=== PATIENT | male | born 1945 | race Caucasian/White ===

== ENCOUNTER 2024-02-11 07:44 | Inpatient (IN) | payer OTHER, SELFPAY ==
[2024-02-06 08:52] VITALS: BMI 24.7
[2024-02-11] VITALS (14 sets, daily range): BP systolic 89–146; BP diastolic 45–78; PULSE 63–88; RESP 11–19; TEMP 35.6–36.6; O2SAT 92–99; BMI 24.3
[2024-02-11] MEDS: ACETAMINOPHEN 325 MG TABLET 975 MG PO (08:48)
[2024-02-11] MEDS: LACTATED RINGERS 1,000 ML 42 ML IV ×2 (08:50→11:54)
--- NOTE | 2024-02-11 09:45 | PM.PREOP ---
Pre-operative Note Interval Note History & Physical reviewed/Exam performed by Physician: Yes Changes to H&P: No
[2024-02-11] MEDS: CEFAZOLIN 2 GM/100 ML PREMIX 100 ML IV ×2 (10:35→18:48)
--- NOTE | 2024-02-11 10:45 | SUR.OPER ---
Prone on spine table, head in foam head support, padded chest and pelvic supports, gel pad at knees, lower legs supported by pillows; nipples, genitalia and toes free of pressure, arms secured on foam padded arm boards at <90 degrees abduction. Tape over blanket at thigh secured to table.
[2024-02-11] MEDS: BUPIVACAINE 0.25% (PF) 60 ML, EPINEPHrine 0.15 MG INJ (10:58)
[2024-02-11] MEDS: BUPIVACAINE LIPOSOME 266 MG/20 ML VIAL INJ (10:59)
--- NOTE | 2024-02-11 12:39 | DI.RAD.S_ITS ---
PROCEDURE: XR LUMBAR SPINE 2-3V INDICATIONS: L4-5 TLIF, L3-4 LAMINECTOMY TECHNIQUE: Fluoroscopic guidance utilized for a surgical fusion of the lower lumbar spine. COMPARISON: None. FINDINGS: Fluoroscopic images submitted for a lower lumbar spine. Please see operative note for further discussion. IMPRESSION: Fluoroscopic guidance. Dictated by: Doyle Underwood M.D. on 02/15/2024 at 9:49 Approved by: Doyle Underwood M.D. on 02/15/2024 at 9:50
--- NOTE | 2024-02-11 12:46 | P.OP_ITS ---
Operative Date/Time/Diagnoses Date of procedure: 02/11/24 Time of procedure: 10:00 Pre-op diagnosis: 1. L3-4, L4-5 spinal stenosis 2. History of L4-5 laminectomy with foraminal stenosis 3. Lumbar radiculopathy Post-op diagnosis: same Procedure & Clinicians Procedure: 1. L4-5 Postero-lateral and posterior interbody fusion 2. L4-5 interbody cage placement. 3. L4-5 decompressive laminectomy with bilateral facetecomies 4. L4-5 Posterior non-segmental instrumentation 5. L3-4 right hemilaminectomy 6. [place] of bone marrow from iliac crest 7. Utilization of microsurgical technique and operating microscope Same procedure as scheduled: Yes Indications: Patient has been having chronic back pain and worsening lumbar radiculopathy. Patient failed multiple conservative management with worsening pain weakness and numbness in her lower extremity. Patient has been having difficulty performing activity of daily living. After discussing risks benefits of treatment options, patient elected proceed with surgery. Surgeon: Alysha Rojo Medical Reimbursement Specialist: Joselyn Dia Click Yes if Unassisted: No Anesthesia Type: General Operative Notes Closure Type: primary Specimen(s): none sent Estimated Blood Loss (mL): 50 Blood products transfused: none Procedure in detail: Patient was seen in the preoperative area. Risks and benefits of the surgery was discussed with the patient. Informed consent was obtained from the patient and placed in the chart. Surgical site was marked. Patient was taken to the operative room. General anesthesia was administered. Prophylactic antibiotic was given to the patient less than 30 min before the incision was made. Patient was placed into a prone position on the Matt table. Patient's back was then prepped and draped in the sterile fashion. Time-out was performed at this time. Using AP and lateral C-arm imaging the interval between L3-4 L4-5 was identified and marked on patient's back. A 2 inch incision 2 in from midline was made on the right side first. The fascia was incised in line with skin incision. Globus MARS retractors was placed inside the incision and docked onto the L4 lamina. Using microsurgical technique and operating microscope, a L4 laminectomy and L4- 5 facetectomy was performed using a Kerrison rongeur. The laminectomy and f acetectomy was performed in order to decompress patient's cauda equina as well as the nerve roots exiting at the L4-5 level. The disc space at L4-5 was identified. And a total diskectomy was performed at L4-5 level. The endplates were decorticated using a rasp and shaver. The total diskectomy and decortication was performed at L4-5 level in order to to accomplish a L4-5 fusion. The local bone from the laminectomy and facetectomy was saved for local bone grafting. After the total diskectomy and decortication was completed, DBM bone graft material was combined with local bone that was harvested earlier. At this time, a separate skin is incision was made over the iliac crest. A Jamshidi needle was inserted into the iliac crest through a separate skin incision. 5 cc of bone marrow aspiration was obtained through the separate skin incision using a Jamshidi needle from the iliac crest. The bone marrow aspiration was combined with local bone and the via cell bone grafting material. The bone grafting material was placed into the L4-5 interbody space along with a expandable cage. The cage was expanded to its maximum height using the torque limiting screwdriver. At this time the MARS retractor was redirected over the L3 lamina. Using microsurgical technique and operating microscope, a L3 heminectomy was performed using the Kerrison rongeur. The ligamentum flavum was also resected at the side of the hemilaminectomy for further decompression of the epidural space. At this time a mirror image incision was made on the left side. The fascia was incised in line with the skin incision. Globus MARS retractor was inserted and docked onto the L4-5 posterolateral gutter. Using the power drill, posterior- lateral decortication was performed at L4-5 level until bleeding cortical bone was identified. The remaining bone grafting material was placed into the L4-5 posterior lateral gutter he order to accomplish posterolateral fusion at the L4- 5 level. Using the double C-arm technique, pedicle screws were placed into the L4 and L5 pedicles bilaterally. This was done by placing the Jamshidi needle into the pedicles, then placing the guidewires over the Jamshidi needle, and finally placing the cannulated screws over the guidewires bilaterally. After the pedicle screws were placed, 2 titanium rods was locked into the heads of the pedicle screws using locking caps and torque limiting screwdriver. After all the hardware was placed, and confirmed with AP and lateral C-arm imaging, the wound was then irrigated with sterile normal saline and packed with Ray-Neha gauze for 3 min to accomplish hemostasis. After the gauze was removed the deep fascia was closed with #1 Vicryl suture. The subcutaneous layer was closed with 2-0 Vicryl. The skin was closed with skin joe. Patient tolerated the procedure well. There were no complications. The Operation could not have been safely performed without compromising the technical result or length of the procedure, without the assistance of a skilled cardiovascular surgical tech. The cardiovascular surgical tech was medically necessary for proper positioning, retraction and manipulation of instruments, proper exposure, surgical preparation, and manipulation of tissue. Neuro monitoring was performed during entire procedure which was stable through entire procedure without disturbance. Complications: none Post-operative Condition: stable Disposition: PACU Plan for aftercare: Admit to inpatient hospital
[2024-02-11] MEDS: fentaNYL 100 MCG/2 ML INJ IV ×3 (13:13→13:37)
[2024-02-11] MEDS: methocarbamoL 500 MG TABLET PO (13:27)
[2024-02-11] MEDS: OXYCODONE IR 5 MG TABLET PO ×2 (13:34→14:08)
[2024-02-11] MEDS: LACTATED RINGERS 1,000 ML 125 ML IV ×2 (14:52→23:00)
[2024-02-11] MEDS: MORPHINE 4 MG/ML INJ 3 MG IV ×2 (14:58→17:43)
--- NOTE | 2024-02-11 15:11 | PC.NURSE ---
Patient brought up to room from PACU. Alert and answering questions, states pinching at back is still very high and that medications have not helped yet. Oriented to room and call light, urinal placed within reach. His Cady is at his bedside. Patient is moving all extremities and denies numbness or tingling. Orders processed and given IV morphine as ordered, will continue to monitor.
[2024-02-11] MEDS: polyethylene glycoL 3350 17 GM POWD.PACK PO (19:00)
[2024-02-11] MEDS: OXYCODONE IR 10 MG TABLET PO (19:03)
[2024-02-11] MEDS: ONDANSETRON 4 MG/2 ML INJ IV (19:41)
[2024-02-11] MEDS: lamoTRIgine 100 MG TABLET 75 MG PO (21:52)
[2024-02-11] MEDS: DOCUSATE 100 MG CAPSULE PO (21:53)
[2024-02-11] MEDS: SENNOSIDES 8.6 MG TABLET 17.2 MG PO (21:53)
[2024-02-11] MEDS: LIDOCAINE 2% (GLYDO) 6 ML GEL TOP (23:02)
[2024-02-12] MEDS: OXYCODONE IR 10 MG TABLET PO ×2 (00:03→17:47)
[2024-02-12] MEDS: CEFAZOLIN 2 GM/100 ML PREMIX 100 ML IV (03:16)
[2024-02-12 06:20] VITALS: BP 101/52; PULSE 61; RESP 19; TEMP 36.2; O2SAT 96
[2024-02-12] MEDS: PANTOPRAZOLE DR 20 MG TABLET PO (06:29)
--- NOTE | 2024-02-12 07:37 | PC.NURSE ---
Patient unable to void. Unable to straight cath, coude catheter attempted with much resistance and discomfort to patient, unsuccessful. Dr notified and orders received. Lidocaine applied and Maier cath inserted by JOSÉ Patel with return of yellow urine. Maier cath DCd at 0640. Patient DTV.
[2024-02-12 08:00] VITALS: BP 102/57; PULSE 66; RESP 16; TEMP 36.3; O2SAT 97
[2024-02-12] MEDS: CHLORTHALIDONE 25 MG TABLET PO (08:53)
[2024-02-12] MEDS: ACETAMINOPHEN 325 MG TABLET 650 MG PO ×2 (08:53→16:51)
[2024-02-12] MEDS: polyethylene glycoL 3350 17 GM POWD.PACK PO (08:54)
[2024-02-12] MEDS: lamoTRIgine 100 MG TABLET 75 MG PO ×2 (08:54→21:39)
[2024-02-12] MEDS: DOCUSATE 100 MG CAPSULE PO ×2 (08:54→21:39)
[2024-02-12 08:55] VITALS: BP 102/57
--- NOTE | 2024-02-12 09:20 | PT.IIE ---
Current Diagnoses Spondylolisthesis, lumbar region (02/11/24) Spinal stenosis, lumbar region without neurogenic claudication (02/11/24) Surgery Performed Operation Date: 02/11/24 09:15 Actual Procedures p L4-5 TLIF, L3-4 Right Hemilaminectomy(Right) - Alysha Rojo MD Surgical History (Last Updated 02/06/24 @ 09:22 by Nay Varma, RN) H/O transurethral resection of prostate History of carpal tunnel surgery of right wrist Hx of bilateral cataract extraction Hx of chest tube placement (~2015) Hx of laminectomy S/P left unicompartmental knee replacement S/P right unicompartmental knee replacement Medical History (Last Updated 02/06/24 @ 09:26 by Nay Varma, RN) Arthritis Pace's esophagus BCC (basal cell carcinoma) Carotid stenosis, left (~10/2023) Degenerative lumbar spinal stenosis Enlarged prostate GERD (gastroesophageal reflux disease) Glaucoma H/O Mohs micrographic surgery for skin cancer Hearing impaired History of COVID-19 (10/2020) HTN (hypertension) Migraines Physical Therapy Inpatient Evaluation/Re-Eval M1 PT/OT-IP Prior Functional Status Start: 02/12/24 13:14 Freq: NEEDED Status: Active Protocol: Document 02/12/24 09:20 AB (Rec: 02/12/24 13:30 AB [id number]) Medical Review Prior Functional Status Medical History Reviewed Yes Communication able to make needs known Mobility and Gait pt stated that he was independent with all mobilities and ambultion without AD Social History Household Members spouse Living Arrangements House Number of Floors (Floors) Two Floors Number of Stairs To Enter/Railing? 6 steps with L rail descending to enter the house has 12 steps (spiral stair case) R rail ascending to bedroom level Home Environment High Toilet,Walk in Shower, Built-In Shower Seat Home Equipment Four Wheel Walker,Hand Held Shower,Grab Bars In Shower Additional Social History Comment pt stated that he has a high bed at home M2 PT-IP Current Condition Start: 02/12/24 13:14 Freq: NEEDED Status: Active Protocol: Document 02/12/24 09:20 AB (Rec: 02/12/24 13:30 AB [id number]) Physical Therapy Current Condition Current Condition Evaluation Date 02/12/24 Treatment Diagnosis s/p L4-5 TLIF; difficulty in walking Onset Date 02/11/24 M3 PT-IP Subjective Start: 02/12/24 13:14 Freq: NEEDED Status: Active Protocol: Document 02/12/24 09:20 AB (Rec: 02/12/24 13:30 AB [id number]) Subjective Physical Therapy Visit Type Type Initial Evaluation Visit Start Time 09:20 Visit Stop Time 10:20 Number of PROGRAM PARAPROFESSIONAL Visits 0 Physical Therapy Visit Comments Patient Comments agreeable to do PT Therapy Pain Assessment Pain Present Pain Present Denied Pain M4 PT-IP Mobility and Gait Start: 02/12/24 13:14 Freq: NEEDED Status: Active Protocol: Document 02/12/24 09:20 AB (Rec: 02/12/24 13:30 AB [id number]) PT-Bed Mobility Assessment Rolling Type of Rolling Log Rolling Level of Assist Contact Guard Assistance Supine to Sit Supine to Sit Contact Guard Assistance Sit to Supine Sit to Supine Minimal Assistance PT-Transfer Assessment Sit to and From Stand Sit to and from Stand Contact Guard Assistance,1 Person Assistance,Use of Upper Extremities Equipment Transfer Assistive Device Gait Belt,Front Wheeled Walker Orthotic/Prosthetic Devices or Brace: No Transfers Transfer Destination Bed Transfer Technique ambulated Transfer Ability Level of Assist Contact Guard Assistance,1 Person Assistance,Use of Upper Extremities Comments Mobility Comments pt sitting on the chair. spouse in room with pt. obtained PLOF and home set up . educated pt regarding back precautions and log roll bed mobility. provided pt with post-op folder and reviewed contents. pt asked regarding a hard shell back brace that was loaned to him by his friend. informed pt and spouse regarding back brace was not ordered by the doctor and that the back brace that was loaned was custom made for his friend and not for him. also informed about incision pressure and skin integrity concerns. pt and spouse understood. pt completed sit to stand cGA and ambulated in room using FWW ~ 30 ft CGA. pt sat on EOB. pt has a high bed at home and positioned bed higher . pt completed log roll bed mobility sit to supine CGA and max cues for techniques. pt. pt completed sit to supine CGa and max cues. pt completed supine to sit CGA and max cues. pt able to sit on EOB SBA. educated pt regarding use of 4WW and how brakes works. pt understood. initiated caregiver training. educated spouse on how to use safety belt. spouse was able to put safety belt on pt. pt c/o nausea and with (+) shaking/tremors needing lay back down completed sit to supine min A and max cues. BP checked: 129/68. positioned pt in bed. call light and table placed within reach. scheduled another caregiver training for this afternoon ~ 1pm/130 pm. nurse aware of c/o nausea. Gait Assessment Gait Gait Assistance Required: Contact Guard Assist Distance (Feet) 30 Able to Maintain Weight Bearing Status Yes During Gait Assistive Devices Assistive Device Gait Belt,Front Wheeled Walker Orthotic/Prosthetic Devices or Brace: No Gait Deviations General Gait Pattern Antalgic Factors Limiting Gait Function Factors Limiting Gait Function Decreased Activity Tolerance, Decreased Strength,Difficulty Following Directions,Limited Range of Motion,Pain,Poor Balance,Poor Safety Awareness PT-Balance Assessment Sitting Balance and Reactions Static Sitting Balance Ability Good Dynamic Sitting Balance Ability Good Standing Balance and Reactions Static Standing Balance Ability Fair Dynamic Standing Balance Ability Fair Device Used FWW M5 PT-IP Objective Assessments Start: 02/12/24 13:14 Freq: NEEDED Status: Active Protocol: Document 02/12/24 09:20 AB (Rec: 02/12/24 13:30 AB [id number]) Orientation Orientation/Cognition Level of Alertness Alert Orientation Name,Place,Situation Language Function Ability Hard of Hearing Safety Awareness Decreased Safety Awareness Memory Description Short Term Impaired Gross Range of Motion Lower Extremity ROM Assessment Within Functional Limits Strength Lower Extremity Strength Hip 3+/5 Knee 4-/5 Coordination Assessment Gross Coordination Gross Coordination WNL Sensation Assessment Sensation Gross Sensation WNL Muscle Tone Muscle Tone WNL Yes M6 PT-IP Treatment Start: 02/12/24 13:14 Freq: NEEDED Status: Active Protocol: Document 02/12/24 09:20 AB (Rec: 02/12/24 13:30 AB [id number]) Physical Therapy Treatment Education Education Provided Precautions,Weight Bearing Status,Post-Op Packet,Safety M7 PT-IP Assessment and Plan Start: 02/12/24 13:14 Freq: NEEDED Status: Active Protocol: Document 02/12/24 09:20 AB (Rec: 02/12/24 13:30 AB [id number]) PT Summary Assessment and Plan Potential Rehabilitation Potential Fair Status of Condition at Evaluation Evolving Summary Impairments Pain,ROM,Strength,Balance, Coordination,Sensation,Tone, Cognition,Bed Mobility, Transfers,Gait,Activity Tolerance Assessment Summary pt is a 78y/o M s/p L4-5 TLIF, L3-4 L hemilaminectomy POD 1. pt requiring CGA to min A with mobility using FWW and max cues for techniques and safety. initiated caregiver training but unable to complete due to c/o nausea with tremors needing to lay back in bed. caregiver training set up for this afternoon. will continue to assess progress. Goals Bed Mobility Goal Standby Assistance Transfer Goal Standby Assistance,Four Wheeled Walker Gait Goal Standby Assistance,Four Wheel Walker Gait Distance 200 Other Goals up/down 12 steps R rail ascending SBA Days to Meet Goals 5 Frequency of Treatment Frequency Of Treatment Twice a Day Treatment Plan Physical Therapy Treatment Plan Bed Mobility Training,Transfer Training,Gait Training, Therapeutic Exercise,Balance Retraining,Post Op Education, Discharge Planning,Hot or Cold Pack,Neuromuscular Re-ed, Coordination Retraining,Manual Therapy Precautions Lumbar Precautions Log Roll,No Twisting,Limit Bending,Lifting Restriction of 10 lbs,Gait Belt above Incisional Area Recommendations To Nursing Amount of Assist Needed 1 Person Assist Discharge Recommendations PT Discharge Recommendations Home with Assistance Transportation Needs at Discharge Private Vehicle
--- NOTE | 2024-02-12 10:29 | P.DS_ITS ---
History of Present Illness History of Present Illness Date Patient Seen: 02/12/24 Time Patient Seen: 07:30 Chief complaint: INPT Narrative: Procedure: 1. L4-5 Postero-lateral and posterior interbody fusion 2. L4-5 interbody cage placement. 3. L4-5 decompressive laminectomy with bilateral facetecomies 4. L4-5 Posterior non-segmental instrumentation 5. L3-4 right hemilaminectomy 6. [place] of bone marrow from iliac crest 7. Utilization of microsurgical technique and operating microscope Same procedure as scheduled: Yes Indications: Patient has been having chronic back pain and worsening lumbar radiculopathy. Patient failed multiple conservative management with worsening pain weakness and numbness in her lower extremity. Patient has been having difficulty performing activity of daily living. After discussing risks benefits of treatment options, patient elected proceed with surgery. Surgeon: Alysha Rojo Bag Machine Helper: Joselyn Dia Click Yes if Unassisted: No Anesthesia Type: General Operative Notes Closure Type: primary Specimen(s): none sent Estimated Blood Loss (mL): 50 Blood products transfused: none Discharge Providers Provider Date of admission: 02/11/24 07:44 Discharge Date: 02/12/24 Primary care physician: Sergey Maya MD Consults: 02/11/24 14:26 Consult to Occupational Therapy Evaluate & Treat Comment: Physician Instructions: Evaluate and treat Consult to Physical Therapy Evaluate & Treat Comment: Physician Instructions: Evaluate and Treat Discharge provider: Angelito Sinclair PA-C Summary Hospital Course Discharge Diagnosis: Status post Procedure: 1. L4-5 Postero-lateral and posterior interbody fusion 2. L4-5 interbody cage placement. 3. L4-5 decompressive laminectomy with bilateral facetecomies 4. L4-5 Posterior non-segmental instrumentation 5. L3-4 right hemilaminectomy Hospital Course: Multimodal pain control. Physical therapy Status at Discharge Cognitive/behavioral status at discharge: oriented Functional status at discharge: uses cane/walker Overall status at discharge: patient is back to baseline Time Spent with Patient Time spent: Less than 30 minutes Exam Vital Signs (past 8 hours): - 02/12/24 06:20 02/12/24 08:00 02/12/24 08:55 Temperature 97.2 F L 97.3 F L Pulse Rate 61 66 Respiratory Rate 19 16 Blood Pressure 101/52 L 102/57 L 102/57 L Pulse Oximetry 96 97 Oxygen Flow Rate 0 0 Oxygen Delivery Method Room Air Oxygen Flow Rate 0 Narrative Exam Narrative: Patient found lying comfortably in bed. by his side. Dressing appears to be clean and dry. Sensation grossly intact bilaterally. Neurovascular grossly intact. Bilateral Strength LE- 5/5 EHL, FHL, TA, TP Gastroc, EDL, FDL PFSH Medical History (Updated 02/06/24 @ 09:26 by Nay Varma RN) History of COVID-19 (10/2020) Arthritis H/O Mohs micrographic surgery for skin cancer BCC (basal cell carcinoma) Degenerative lumbar spinal stenosis Enlarged prostate Pace's esophagus GERD (gastroesophageal reflux disease) Carotid stenosis, left (~10/2023) HTN (hypertension) Hearing impaired Glaucoma Migraines Surgical History (Updated 02/06/24 @ 09:22 by Nay Varma RN) History of carpal tunnel surgery of right wrist Hx of chest tube placement (~2015) Hx of laminectomy S/P right unicompartmental knee replacement S/P left unicompartmental knee replacement H/O transurethral resection of prostate Hx of bilateral cataract extraction Social History household members: spouse Smoking Status: Never smoker alcohol intake: current Discharge Assessment & Plan Assessment and Plan Assessment: Status post: 1. L4-5 Postero-lateral and posterior interbody fusion 2. L4-5 interbody cage placement. 3. L4-5 decompressive laminectomy with bilateral facetecomies 4. L4-5 Posterior non-segmental instrumentation 5. L3-4 right hemilaminectomy Plan of Treatment: Postoperative medications have already been prescribed and delivered to the patient's home: Oxycodone 5 mg 1 tablet every 4 hours as needed for pain and hydroxyzine 25 mg take 1 tablet every 6 hours as needed for postoperative nausea and spasm. No deep bending or twisting at the waist. No lifting more than 10 pounds. Utilize walker as needed. Follow up with [facility] in 2 weeks for wound check. Discharge Plan Discharge Plan Patient Disposition: Home Nursing Discharge Comment: DC once able to urinate on own and cleared by PT Discharge orders & Medications Prescriptions: Continued lamotrigine 150 mg Tablet 75 mg PO BID lisinopril 20 mg Tablet 20 mg PO DAILY chlorthalidone 25 mg Tablet 25 mg PO DAILY aspirin 81 mg Tablet,Delayed Release (Dr/Ec) 81 mg PO DAILY sildenafil 100 mg Tablet 100 mg PO DAILY PRN (Reason: Sexual Activity) Rx Instructions: administer 30 minutes to 4 hours before activity omeprazole 20 mg Tablet,Delayed Release (Dr/Ec) 20 mg PO DAILY Follow up/Referrals: Sergey Maya MD [Primary Care Provider] - Alysha Rojo MD [Physician] - 03/03/24 2:30 pm (Follow up w/ Annette Feliciano PA-C, at [facility] office in [place].) Diet/Activity/Treatments Diet: Diet as Tolerated Activity: No deep bending or twisting at the waist. No lifting more than 10 pounds. Cold/Heat Therapy: Heating pad to low back as needed for pain. Skin/Wound/Dressing Care Report to your healthcare provider any signs of infection, such as:: chills, fever, night sweats, unusual drainage and unusual redness Dressing: May shower. Keep dressing as dry as possible. If dressing becomes wet or dirty, may remove and replace with clean, dry gauze. No bathing or otherwise soaking incisions. Do not apply any creams, lotions, or ointments to incisions. Visit Report/Discharge Packet Instructions: DI for Transforaminal Lumbar Interbody Fusion Stand Alone Forms: Patient Portal/API, Stroke Signs & Symptoms, Surgery Discharge Discharge Data Primary Care Provider: Sergey Maya
[2024-02-12] MEDS: ONDANSETRON 4 MG ODT SL (11:11)
--- NOTE | 2024-02-12 11:33 | OT.IP.EVAL ---
Current Diagnoses Spondylolisthesis, lumbar region (02/11/24) Spinal stenosis, lumbar region without neurogenic claudication (02/11/24) Surgery Performed Operation Date: 02/11/24 09:15 Actual Procedures p L4-5 TLIF, L3-4 Right Hemilaminectomy(Right) - Alysha Rojo MD Past Medical History (Last Updated 02/06/24 @ 09:26 by Nay Varma, RN) Arthritis Pace's esophagus BCC (basal cell carcinoma) Carotid stenosis, left (~10/2023) Degenerative lumbar spinal stenosis Enlarged prostate GERD (gastroesophageal reflux disease) Glaucoma H/O Mohs micrographic surgery for skin cancer Hearing impaired History of COVID-19 (10/2020) HTN (hypertension) Migraines Surgical History (Last Updated 02/06/24 @ 09:22 by Nay Varma RN) H/O transurethral resection of prostate History of carpal tunnel surgery of right wrist Hx of bilateral cataract extraction Hx of chest tube placement (~2015) Hx of laminectomy S/P left unicompartmental knee replacement S/P right unicompartmental knee replacement Occupational Therapy Inpatient Evaluation/Re-Eval M1 PT/OT-IP Prior Functional Status Start: 02/12/24 13:14 Freq: NEEDED Status: Active Protocol: Document 02/12/24 15:15 CGR (Rec: 02/12/24 15:30 CGR [id number]) Medical Review Prior Functional Status Medical History Reviewed Yes Communication able to make needs known Mobility and Gait pt stated that he was independent with all mobilities and ambultion without AD Activities of Daily Living and IADL's Pt was IND in all ADLS at baseline. Social History Household Members spouse Living Arrangements House Number of Floors (Floors) Two Floors Number of Stairs To Enter/Railing? 6 steps with L rail descending to enter the house has 12 steps (spiral stair case) R rail ascending to bedroom level Home Environment High Toilet,Walk in Shower, Built-In Shower Seat Home Equipment Four Wheel Walker,Hand Held Shower,Grab Bars In Shower Additional Social History Comment pt stated that he has a high bed at home M2 OT-IP Current Condition Start: 02/12/24 15:15 Freq: Status: Active Protocol: Document 02/12/24 15:15 CGR (Rec: 02/12/24 15:30 CGR [id number]) Occupational Therapy Current Condition Current Condition Evaluation Date 02/12/24 Treatment Diagnosis L3-5 TLIF Diagnosis Onset Date 02/11/24 Post Operative Precautions Lumbar Precautions Log Roll,No Twisting,Limit Bending,Lifting Restriction of 10 lbs,Gait Belt above Incisional Area M3 OT- IP Subjective and Pain Start: 02/12/24 15:15 Freq: Status: Active Protocol: Document 02/12/24 15:15 CGR (Rec: 02/12/24 15:30 CGR [id number]) OT- Subjective Occupational Therapy Visit Type Type Initial Evaluation Visit Start Time 11:07 Visit Stop Time 11:33 Notes Pt's present throughotu session. Pt states he is nauseated and wants medication to assist. Notified nursing. OT Pain Assessment Pain When Pain Assessed At Rest Pain Present Pain Present Pain Reported Location back Intensity 5 Scale Used Numeric (0 - 10) Management Techniques Modification of Treatment,Re- positioning M4 OT- IP ADL's Start: 02/12/24 15:15 Freq: Status: Active Protocol: Document 02/12/24 15:15 CGR (Rec: 02/12/24 15:30 CGR [id number] OT ALT-Dekw-Fkqltte Comments OT Self-Feeding Comments not meal time OT ADL-Grooming Comments OT Grooming Comments pt declined OT ADL-Oral Care Comments Oral Care Comments pt declined OT ADL-Dressing Comments OT Dressing Comments Pt was educated on LB dressing with use of DME. Pt was feeling nauseated and layed in bed during demonstration and declined to attempt but was attentive during instruction. Pt reminded that he would need to be seated for LB dressing. OT ADL-Toileting General Evaluation Toileting Ability Standby Assistance Comments OT Toileting Comments Pt seated on toilet for urination when OT entered. OT ADL-Bathing Comments OT Bathing Comments not performed M5 OT- IP IADL's Start: 02/12/24 15:15 Freq: Status: Active Protocol: Document 02/12/24 15:15 CGR (Rec: 02/12/24 15:30 CGR [id number]) OT-Instrumental Activities of Daily Living Deficits IADL Deficits Identified No Deficits Home Safety Awareness Awareness of Need for Assistance at Home Good Awareness Ability to Problem Solve Emergency Able to Problem Solve Situations Medication Management Medication Management No Deficits Identified Money Management Money Management No Deficits Identified Meal Preparation Meal Preparation Caregiver Provides Assist Worship Pastor Worship Pastor Caregiver Provides Assist Driving Driving Comments 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 M6 OT- IP Functional Cognition Start: 02/12/24 15:15 Freq: Status: Active Protocol: Document 02/12/24 15:15 CGR (Rec: 02/12/24 15:30 CGR [id number]) Cognitive Factors Limiting Selfcare Function Cognitive Ability Level of Alertness Alert Patient Orientation Name,Age,Birthday,Month,Date, Year,Day of Week,Place, Situation Attention Span Ability Capable of Focused Attention, Capable of Sustained Attention Ability to Follow Commands Able to Follow One Step Commands with Increased Time, Able to Follow One Step Commands with Repetition OT- Vision and Hearing OT- Hearing Assessment OT- Hearing Assessment Hearing Impaired,Use of Hearing Aids OT- Vision Assessment Vision History Cataracts Visual Acuity WFL,Glasses For Reading Visual Attentiveness WFL Occular Pursuits WFL Visual Convergence WFL Vision Assessment Comments Pt has a hx of cateract sx. M7 OT- IP Mobility and Balance Start: 02/12/24 15:15 Freq: Status: Active Protocol: Document 02/12/24 15:15 CGR (Rec: 02/12/24 15:30 CGR [id number]) OT- Bed Mobility Assessment Sit to Supine Sit to Supine Assist Minimal Assistance OT-Transfer Assessment Sit to and From Stand Sit to and from Stand Standby Assistance Transfers Transfer Ability Standby Assistance Technique Transfer Destination Bed,Toilet Transfer Technique Stand Step Pivot Devices Transfer Assistive Devices Gait Belt,Front Wheeled Walker OT- Gait Assessment Gait Gait Assistance Required: Standby Assistance Assistive Devices Assistive Device Gait Belt,Front Wheeled Walker Comments Gait Ability Comments mobility around the room OT- Balance Assessment Sitting Balance and Reactions Static Sitting Balance Ability Good Dynamic Sitting Balance Ability Good M8 OT- IP Objective Assessments Start: 02/12/24 15:15 Freq: Status: Active Protocol: Document 02/12/24 15:15 CGR (Rec: 02/12/24 15:30 CGR [id number]) OT Gross Range of Motion Upper Extremity Range of Motion Assessment Within Functional Limits OT Strength Upper Extremity Strength Assessment Within Functional Limits Comments Strength Comments grossly 5/5 OT- Coordination Assessment Upper Extremity Finger to Nose Test Within Functional Limits Finger Tapping Test Within Functional Limits OT-Muscle Tone Assessment Muscle Tone WNL Yes OT Sensation Assessment Edema Edema Absent M9 OT- IP Assessment and Plan Start: 02/12/24 15:15 Freq: Status: Active Protocol: Document 02/12/24 15:15 CGR (Rec: 02/12/24 15:30 CGR [id number]) OT Summary Assessment and Plan Potential Rehabilitation Potential Good Analytic Complexity at Evaluation Low Summary OT Impairments Pain,Balance,Functional Mobility,Grooming,Dressing, Toileting,Bathing,Toilet Transfers,Shower Transfers, Activity Tolerance Progress Towards Goals Progressing Toward Goals Assessment Summary Pt presents as a low complexity evaluation s/p admit for L3-5 TLIF. He is having the further complication of being unable to urinate and now also nauseated. Session today was limited by nausea. Pt was educated on LB dressing but would benefit from review and trial of the tactics. Pt is safe for discharge home with family support when medically ready. Goals Grooming Goal Independent Dressing Goal Independent Toileting Goal Independent Bathing Goal Independent Toilet Transfer Goal Independent Shower Transfer Goal Independent Days to Meet Goals 2 Frequency of Treatment Frequency Of Treatment Once a Day Treatment Plan OT Treatment Plan ADL Training,Functional Mobility,Patient/Family Education,Discharge Planning Other Treatment Recommendations and Next LB dressing training. Treatment Focus Discharge Recommendations OT Discharge Recommendations Home with Assistance Transportation Needs at Discharge Private Vehicle
[2024-02-12] MEDS: TAMSULOSIN 0.4 MG CAPSULE PO (12:02)
--- NOTE | 2024-02-12 12:51 | CM.DANOTE ---
Patient is a 78 yo male who was admitted on 02/11/24 for TLIF. Pt has [employer] [facility] AD[facility] for insurance and his PCP is Sergey Maya. EMR was reviewed. Per Ortho, pt tolerated procedure well and pain managed but having urinary retention and to work with PT/OT today towards possible discharge home today vs tomorrow pending progress. Per PT, pt became dizzy and nauseous during initial eval and will have to reassess this afternoon as pt only able to participate limited capacity. Per OT, pt able to participate but did become nauseous but not orthostatic and anticipate home with spouse assist when stable. Pt with ongoing urinary retention. Per RN, Ortho placed orders for med for urinary retention as pt had to be straight cath'd unsuccessfully last night, kerr placed and then d/c'd, and now ongoing retention with pink urine. SW met bedside with pt and spouse and explained role and they confirm they live in [facility] at home and both are active and independent at baseline and have adult Dtr who could assist but lives about 40 min away. Pt has hx of two other back surgeries but was able to d/c home both times without need for PT (outpt, HH, or SNF) and had urinary retention with those surgeries as well. Pt drives and DPOA is spouse and Dtr. Pt and spouse have concerns with discharge home today and preference is to d/c home with Dtr support when pt able to void independently and nausea controlled. Spouse recently had knee surgery herself so limited in her ability to provide physical assist. Plan: SW to follow closely for PT eval this afternoon around 1330 to determine if pt able to participate with CG training and stairs as pt has 6 steps to enter and for pt to void independently for plan of discharge home tonight vs tomorrow via spouse POV. KYRIE Rodas Discharge Planning/Care Management CM Discharge Assessment Start: 02/12/24 12:49 Freq: Status: Active Protocol: Document 02/12/24 12:49 BF (Rec: 02/12/24 12:51 BF [id number]) Discharge Planning Assessment Assigned Health Education Aide KYRIE Estrada DPOA/Assigned Designee Name spouse Cady Contact Information [phone] Advance Directives? No Advance Directives on File No History Provided By Patient,Significant Other, Medical Record Has Patient been admitted in last 30 No days? Prior Living Arrangements House Household Members spouse Type of transporation used prior to Drives own vehicle admit Independent with ADL's Yes Is patient alert and oriented? Yes Caregiver for Another No Patient/Family Preference OP PT Therapy Comment r/o possible HH due to bp issues and urinary retention Barriers to Discharge No Discharge Plan Home Community Services Physical Therapy Transportation Arrangement Spouse confirms she can transport at d/c Referrals Initiated None needed Additional Comment Pending further PT/OT recommendations Whiteboard Updated in Patient Room with Yes name and ext. # of Health Education Aide Review Status In Process Please Provide Date Initial DC 02/12/24 Assessment Was Performed Next Review Type Continued Stay Review Pre-Anesthesia Assessment Start: 02/06/24 08:52 Freq: Status: Active Protocol: Document 02/06/24 08:52 CAB (Rec: 02/06/24 09:37 CAB [id number]) Pre-Anesthesia Assessment Preferred Name Chase Patient Information Reviewed Via Phone Assessment Assessment Completed With Patient Diagnostic Results BMP/CMP,CBC,EKG Comment Outside labs/EKG scanned Primary Care Provider Sergey Maya Seen Specialist in Last 12 Months Yes Specialist Seen Orthopedist,Other Comment Neurology Primary Language 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 Electrical Required No Height 177.8 cm Weight 78.018 kg Body Mass Index (BMI) 24.7 Hearing Ability Hearing Impaired,Use of Hearing Aid Visual Assist Glasses Dentition Type Teeth, Natural Present,Teeth, Missing Barriers to Learning Auditory Hx Anesthesia Reactions No: No Dilaudid - see allergies Hx Family Anesthesia Reaction No Hx Malignant Hyperthermia No Hx Blood Transfusions No Anesthesia Review Requested No Answering Service Agent No alcohol intake current alcohol intake frequency 0-2 drinks per day Smoking Status Never smoker Substance Use Type marijuana Comment Advised not to smoke marijuana 24 hours prior Pain Present Pain Reported Musculoskeletal Symptoms Abnormal Gait,Back Pain,Muscle Weakness,Radiating Pain into Limb History of Falling (Recent or History of Yes ) Patient is completely paralyzed or No completely immobile Mental Status Oriented to own ability Is patient on oxygen? No Does patient have MORRIS/SOB No Hx Sleep Apnea No Currently Taking a Beta Selam No Can You Climb a Flight of Stairs Without Yes SOB Hx Chest Pain No Hx SOB No Hx Syncope or Dizziness No Anti-Coagulant Therapy No Has a Pharmacy Informatics Specialist No Cardiac Testing No Hx Pacemaker/ICD No Pacemaker Rep Required? No Cardiac Clearance Received Not Applicable Diet Type At Home Regular Dysphagia No Gastrointestinal Symptoms Constipation,Reflux Comment Hx of Pace's Chronic UTI No Urinary Catheter Present No Hx Urinary Self Catheterization No Diabetes No HgbA1C 5.8 Date 01/18/24 Presence of External or Internal Medical Yes: Rufus uni knee, eye IOls, Devices hearing aids Received a COVID vaccine? No Marital Status Lives With spouse Current Living Arrangements House Number of Floors (Floors) Two Floors Support System Spouse Does the Patient Have Assistance After Yes Surgery Patient Discharge Plan Description Return Home Comment Pt advised 1 night length of stay per surgeon Feels Safe in Current Environment Yes Been Physically Hurt or Threatened By a No Person in Current Environment Do you have thoughts of harming yourself None or others? Are you currently considering suicide? No Do you have a plan to hurt yourself or No Plan others? Do You Have Any Spiritual Beliefs That No May Affect Your HC Choices? Do You Have Any Cultural Practices That No May Affect Your HC Choices? Comment Jewish Who Can We Speak to About Patient's Care Family, friends Identifying Code for Release of Patient Declines to issue Information Health Care Proxy/Next of Kin Cady () Health Care Proxy Emergency Contact Name Cady () Emergency Contact Advance Directives? No Power of Placement Secretary No PAC Instructions Durable medical equipment, Medications to take/avoid, Nasal antibiotic,No ETOH/ petroleum product on skin DOS, NPO,Post-op transportation,Pre -surgical wash,Sensory aids, Sturdy shoes/comfortable clothes,Do not bring valuables and remove jewelry
--- NOTE | 2024-02-12 13:15 | PT.IPTN ---
Current Diagnoses Spondylolisthesis, lumbar region (02/11/24) Spinal stenosis, lumbar region without neurogenic claudication (02/11/24) Surgery Performed Operation Date: 02/11/24 09:15 Actual Procedures p L4-5 TLIF, L3-4 Right Hemilaminectomy(Right) - Alysha Rojo MD Physical Therapy Treatment Note M2 PT-IP Current Condition Start: 02/12/24 13:14 Freq: NEEDED Status: Active Protocol: Document 02/12/24 09:20 AB (Rec: 02/12/24 13:30 AB [id number]) Physical Therapy Current Condition Current Condition Evaluation Date 02/12/24 Treatment Diagnosis s/p L4-5 TLIF; difficulty in walking Onset Date 02/11/24 M3 PT-IP Subjective Start: 02/12/24 13:14 Freq: NEEDED Status: Active Protocol: Document 02/12/24 13:45 TS (Rec: 02/12/24 14:04 TS [id number]) Subjective Physical Therapy Visit Type Type Treatment Note Visit Start Time 13:15 Visit Stop Time 13:43 Notes BP 122/61 supine Number of METALLURGICAL LABORATORY ASSISTANT Visits 1 Physical Therapy Visit Comments Patient Comments Pt found resting in bed, reports no nausea or dizziness . Pt is agreeable to PT. M4 PT-IP Mobility and Gait Start: 02/12/24 13:14 Freq: NEEDED Status: Active Protocol: Document 02/12/24 13:45 TS (Rec: 02/12/24 14:04 TS [id number]) PT-Bed Mobility Assessment Rolling Type of Rolling Log Rolling Level of Assist Standby Assistance Supine to Sit Supine to Sit Standby Assistance Sit to Supine Sit to Supine Standby Assistance Scooting Scooting to Edge of Bed Standby Assistance PT-Transfer Assessment Sit to and From Stand Sit to and from Stand Standby Assistance,1 Person Assistance,Use of Upper Extremities Equipment Transfer Assistive Device Gait Belt,Front Wheeled Walker Orthotic/Prosthetic Devices or Brace: No Comments Mobility Comments Pt recalled 2/3 spinal precautions prior to mobility( no lifting). Logroll to L side SBA, pt demonstrates good carryover of sequencing. Supine to sit SBA with BUE support and handrail assist. STS from bed with FWW SBA, pt has good standing balance. He ambulated ~200' with FWW SBA, pt denied any dizziness or lightheadedness. He performed stairs x6 CGA from spouse with single rails, had no buckling or LOB. Pt ambulated [facility] ot room, sit to supine SBA with cues for logroll. Pt was left in bed, all needs met. Gait Assessment Gait Gait Assistance Required: Standby Assistance Distance (Feet) 200 Able to Maintain Weight Bearing Status Yes During Gait Assistive Devices Assistive Device Gait Belt,Front Wheeled Walker Orthotic/Prosthetic Devices or Brace: No Gait Deviations General Gait Pattern Antalgic,Decreased Stride Length,Decreased Feet Clearance Factors Limiting Gait Function Factors Limiting Gait Function Decreased Activity Tolerance, Decreased Strength,Difficulty Following Directions,Limited Range of Motion,Pain,Poor Balance,Poor Safety Awareness Comments Gait Comments See mobility comments PT-Balance Assessment Sitting Balance and Reactions Static Sitting Balance Ability Good Dynamic Sitting Balance Ability Good Standing Balance and Reactions Static Standing Balance Ability Good Dynamic Standing Balance Ability Fair Device Used FWW M5 PT-IP Objective Assessments Start: 02/12/24 13:14 Freq: NEEDED Status: Active Protocol: Document 02/12/24 09:20 AB (Rec: 02/12/24 13:30 AB [id number]) Orientation Orientation/Cognition Level of Alertness Alert Orientation Name,Place,Situation Language Function Ability Hard of Hearing Safety Awareness Decreased Safety Awareness Memory Description Short Term Impaired Gross Range of Motion Lower Extremity ROM Assessment Within Functional Limits Strength Lower Extremity Strength Hip 3+/5 Knee 4-/5 Coordination Assessment Gross Coordination Gross Coordination WNL Sensation Assessment Sensation Gross Sensation WNL Muscle Tone Muscle Tone WNL Yes M6 PT-IP Treatment Start: 02/12/24 13:14 Freq: NEEDED Status: Active Protocol: Document 02/12/24 13:45 TS (Rec: 02/12/24 14:04 TS [id number]) Physical Therapy Treatment Education Education Provided Precautions,Weight Bearing Status,Post-Op Packet,Safety M7 PT-IP Assessment and Plan Start: 02/12/24 13:14 Freq: NEEDED Status: Active Protocol: Document 02/12/24 13:45 TS (Rec: 02/12/24 14:04 TS [id number]) PT Summary Assessment and Plan Potential Rehabilitation Potential Fair Summary Impairments Pain,ROM,Strength,Balance, Coordination,Sensation,Tone, Cognition,Bed Mobility, Transfers,Gait,Activity Tolerance Progress Towards Goals Progressing Toward Goals Assessment Summary Rios is making good progress with his mobility. He progressed his bed mobility to SBA with minimal cues. He progressed his ambulation to ~ 200'SBA with FWW, denied any dizziness or lightheadedness and nausea. He progressed to stairs x6 with single rail and CGA from spouse. PT is recommending home with assist with spouse. Goals Bed Mobility Goal Standby Assistance Transfer Goal Standby Assistance,Four Wheeled Walker Gait Goal Standby Assistance,Four Wheel Walker Gait Distance 200 Other Goals up/down 12 steps R rail ascending SBA Days to Meet Goals 5 Frequency of Treatment Frequency Of Treatment Twice a Day Treatment Plan Physical Therapy Treatment Plan Bed Mobility Training,Transfer Training,Gait Training, Therapeutic Exercise,Balance Retraining,Post Op Education, Discharge Planning,Hot or Cold Pack,Neuromuscular Re-ed, Coordination Retraining,Manual Therapy Precautions Lumbar Precautions Log Roll,No Twisting,Limit Bending,Lifting Restriction of 10 lbs,Gait Belt above Incisional Area Recommendations To Nursing Amount of Assist Needed 1 Person Assist Discharge Recommendations PT Discharge Recommendations Home with Assistance Transportation Needs at Discharge Private Vehicle
--- NOTE | 2024-02-12 14:14 | PC.NURSE ---
Addendum entered by Krystle Leroy R.N. 02/12/24 19:04: Patient had a total of 450cc of urine out of his bladder. Addendum entered by Krystle Leroy R.N. 02/12/24 18:35: Patient voided another 200cc but had 743ml in his bladder. We put a 14f coude kerr catheter in patient. Patient had some lidocaine jelly, catheter was advanced up to the y-port of the catheter and it took 3 times to advance it until urine was flowing out. It is draining slowly and he has some watermelon colored urine in the bag. 200cc. We are going to keep the patients kerr in until tomorrow. Original Note: Patient voided 200cc of pink tinged urine around 1400, pvr done after and patient had 650ml of urine left after voiding per bladder scan. Message left on PA phone and also fax sent for him down to surgery.
[2024-02-12 16:00] VITALS: BP 129/67; PULSE 66; RESP 16; TEMP 36.5; O2SAT 98
[2024-02-12] MEDS: LIDOCAINE 2% (GLYDO) 6 ML GEL TOP (18:52)
[2024-02-12 20:00] VITALS: BP 134/68; PULSE 71; RESP 16; TEMP 36.2; O2SAT 97
[2024-02-12] MEDS: SENNOSIDES 8.6 MG TABLET 17.2 MG PO (21:39)
[2024-02-13 00:04] VITALS: BP 140/72; PULSE 76; RESP 16; TEMP 37; O2SAT 96
[2024-02-13] MEDS: ACETAMINOPHEN 325 MG TABLET 650 MG PO ×2 (02:09→09:06)
[2024-02-13] MEDS: OXYCODONE IR 10 MG TABLET PO (02:09)
[2024-02-13] MEDS: diphenhydrAMINE 50 MG/ML VIAL 25 MG IV (02:10)
[2024-02-13 09:03] VITALS: BP 143/76; PULSE 76
[2024-02-13] MEDS: lisinopriL 20 MG TABLET PO (09:03)
[2024-02-13] MEDS: lamoTRIgine 100 MG TABLET 75 MG PO (09:06)
[2024-02-13] MEDS: TAMSULOSIN 0.4 MG CAPSULE PO (09:06)
[2024-02-13] MEDS: CHLORTHALIDONE 25 MG TABLET PO (09:07)
[2024-02-13] MEDS: DOCUSATE 100 MG CAPSULE PO (09:07)
--- NOTE | 2024-02-13 09:07 | PM.DS.1 ---
History of Present Illness History of Present Illness Date Patient Seen: 02/13/24 Time Patient Seen: 09:07 Chief complaint: INPT Narrative: Operative Date/Time/Diagnoses Date of procedure: 02/11/24 Time of procedure: 10:00 Pre-op diagnosis: 1. L3-4, L4-5 spinal stenosis 2. History of L4-5 laminectomy with foraminal stenosis 3. Lumbar radiculopathy Post-op diagnosis: same Procedure & Clinicians Procedure: 1. L4-5 Postero-lateral and posterior interbody fusion 2. L4-5 interbody cage placement. 3. L4-5 decompressive laminectomy with bilateral facetecomies 4. L4-5 Posterior non-segmental instrumentation 5. L3-4 right hemilaminectomy 6. [place] of bone marrow from iliac crest 7. Utilization of microsurgical technique and operating microscope Same procedure as scheduled: Yes Indications: Patient has been having chronic back pain and worsening lumbar radiculopathy. Patient failed multiple conservative management with worsening pain weakness and numbness in her lower extremity. Patient has been having difficulty performing activity of daily living. After discussing risks benefits of treatment options, patient elected proceed with surgery. Surgeon: Alysha Rojo Associate Professor Of Art History: Joselyn Dia Click Yes if Unassisted: No Anesthesia Type: General Operative Notes Closure Type: primary Specimen(s): none sent Estimated Blood Loss (mL): 50 Blood products transfused: none Discharge Providers Provider Date of admission: 02/11/24 07:44 Discharge Date: 02/13/24 Primary care physician: Sergey Maya MD Consults: 02/11/24 14:26 Consult to Occupational Therapy Evaluate & Treat Comment: Physician Instructions: Evaluate and treat Consult to Physical Therapy Evaluate & Treat Comment: Physician Instructions: Evaluate and Treat Discharge provider: Joselyn Dia PA-C Summary Hospital Course Discharge Diagnosis: L3-4, L4-5 spinal stenosis, History of L4-5 laminectomy with foraminal stenosis; s/p right L3-4 hemilaminectomy and L4-5 lumbar fusion Hospital Course: Mr Cruz's hospital course was remarkable for postoperative urinary retention. This necessitated placement of a Maier catheter on POD# 1 - he was not catheterized during surgery. He has a h/o TURP about 3-4 years ago and had been voiding independently and without the need for medication prior to his lumbar fusion. On the morning of POD# 2, he was otherwise doing well. He was eating without difficulty and his pain was well-controlled with oral medication. He and his spouse were insistent that he be discharged home with the cathether in place and follow up with his urologist, Dr Curtis Orellana, at [facility]. Exam Vital Signs (past 8 hours): Oxygen Delivery Method Room Air Oxygen Flow Rate 0 Narrative Exam Narrative: Observed pt transferring from bed to walker to toilet with the help of his spouse. Movements were safe and deliberate. No foot drop noted. Low back dressing placed intraoperatively CDI. Adequate u/o, urine clear and de oliveira. [facility] Medical History (Updated 02/06/24 @ 09:26 by Nay Varma RN) History of COVID-19 (10/2020) Arthritis H/O Mohs micrographic surgery for skin cancer BCC (basal cell carcinoma) Degenerative lumbar spinal stenosis Enlarged prostate Pace's esophagus GERD (gastroesophageal reflux disease) Carotid stenosis, left (~10/2023) HTN (hypertension) Hearing impaired Glaucoma Migraines Surgical History (Updated 02/13/24 @ 09:31 by Joselyn Dia PA-C) History of carpal tunnel surgery of right wrist Hx of chest tube placement (~2015) Hx of laminectomy S/P right unicompartmental knee replacement S/P left unicompartmental knee replacement H/O transurethral resection of prostate Hx of bilateral cataract extraction Social History household members: spouse Smoking Status: Never smoker alcohol intake: current Discharge Assessment & Plan Assessment and Plan Assessment: 1) L3-4, L4-5 spinal stenosis, History of L4-5 laminectomy with foraminal stenosis; s/p right L3-4 hemilaminectomy and L4-5 lumbar fusion 2) Post-operative urinary retention requiring catheter placement Plan of Treatment: Discharge home with catheter in place. I attempted to make an appointment for pt w/ Dr Orellana's office and was told by telephone operator receptionist that they are currently scheduling into February, but that I should send an urgent referral and they may be able to get the patient in sooner. I have had this sent from our office. Will continue tamsulosin on discharge. In terms of his lumbar fusion, multimodal pain control, f/u w/ ortho in 2 weeks as scheduled. Discharge Plan Discharge Plan Patient Disposition: Home Provider Discharge Comment: Pt had oxycodone prescribed at office preop appt. Discharge orders & Medications Prescriptions: New tamsulosin 0.4 mg capsule 0.4 mg PO DAILY Qty: 30 0RF Continued lamotrigine 150 mg Tablet 75 mg PO BID lisinopril 20 mg Tablet 20 mg PO DAILY chlorthalidone 25 mg Tablet 25 mg PO DAILY aspirin 81 mg Tablet,Delayed Release (Dr/Ec) 81 mg PO DAILY sildenafil 100 mg Tablet 100 mg PO DAILY PRN (Reason: Sexual Activity) Rx Instructions: administer 30 minutes to 4 hours before activity omeprazole 20 mg Tablet,Delayed Release (Dr/Ec) 20 mg PO DAILY Follow up/Referrals: Sergey Maya MD [Primary Care Provider] - Curtis Orellana DO [Non-Staff] - 02/15/24 2:15 pm (Appt:02/14 (this sunday) check in @ 2:15 for a 2:30 with Melinda restrepo Appt:02/19 @ 1030 for catheter removal for trial voiding with Dr Orellana's nurse you will then return 02/19 @ 2:30 for a bladder scan please make sure to attend each of these appointments ) Alysha Rojo MD [Physician] - 03/03/24 2:30 pm (Follow up w/ Annette Feliciano PA-C, at [facility] office in [place].) Diet/Activity/Treatments Diet: Diet as Tolerated Activity: No deep bending or twisting at the waist. No lifting more than 10 pounds. Cold/Heat Therapy: Heating pad to low back as needed for pain. Catheter comment: Urgent referral sent to Dr Orellana's office for f/u in 1-2 weeks. Skin/Wound/Dressing Care Report to your healthcare provider any signs of infection, such as:: chills, fever, night sweats, unusual drainage and unusual redness Dressing: May shower. Keep dressing as dry as possible. If dressing becomes wet or dirty, may remove and replace with clean, dry gauze. No bathing or otherwise soaking incisions. Do not apply any creams, lotions, or ointments to incisions. Visit Report/Discharge Packet Instructions: DI for Transforaminal Lumbar Interbody Fusion, DI for Prescription Opioid Use Stand Alone Forms: Patient Portal/API, Stroke Signs & Symptoms, Surgery Discharge Discharge Data Primary Care Provider: Sergey Maya
--- NOTE | 2024-02-13 10:10 | CM.DPC ---
DCP Cont. Reviewed EMR and team rounds for status updates. Pt has now been able to void and will be discharged home this morning to home with family assistance. Pt understands his d/c instructions for precautions and f/u appt. with Ortho in 2-weeks. Family will transport him home. No further d/c needs identified at this time.
--- NOTE | 2024-02-13 10:49 | PC.NURSE ---
Pt is dressed and ready for discharge home with Spouse. IV has been removed. Dsg to back changed to Coversite. Went over d/c instructions with Pt and Spouse-discussed d/c meds, time of last dose, reviewed stroke education, back precautions, kerr care (Pt has an appointment with Urology on Sunday), no driving while on narcotics, drink plenty of fluids to prevent constipation or dehydration, s/s of infection and when to call MD, and Ortho follow up appointment. Pt denied further questions and will be taken out via w/c by [employer] to POV with Spouse and all belongings.
--- NOTE | 2024-02-13 13:18 | OT.IP.TRT ---
Current Diagnoses Spondylolisthesis, lumbar region (02/11/24) Spinal stenosis, lumbar region without neurogenic claudication (02/11/24) Surgery Performed Operation Date: 02/11/24 09:15 Actual Procedures p L4-5 TLIF, L3-4 Right Hemilaminectomy(Right) - Alysha Rojo MD Occupational Therapy Treatment Note M2 OT-IP Current Condition Start: 02/12/24 15:15 Freq: Status: Discharge Protocol: Document 02/12/24 15:15 CGR (Rec: 02/12/24 15:30 CGR [id number]) Occupational Therapy Current Condition Current Condition Evaluation Date 02/12/24 Treatment Diagnosis L3-5 TLIF Diagnosis Onset Date 02/11/24 Post Operative Precautions Lumbar Precautions Log Roll,No Twisting,Limit Bending,Lifting Restriction of 10 lbs,Gait Belt above Incisional Area M3 OT- IP Subjective and Pain Start: 02/12/24 15:15 Freq: Status: Discharge Protocol: Document 02/13/24 13:12 SAMANTHA (Rec: 02/13/24 13:18 SAMANTHA [id number]) OT- Subjective Occupational Therapy Visit Type Type Treatment Note Visit Start Time 13:10 Visit Stop Time 13:12 Notes Pt reclined in bed and present on entrance of OT. Occupational Therapy Visit Comments Patient Comments I'm just ready to go home OT Pain Assessment Pain When Pain Assessed At Rest Pain Present Pain Present Pain Reported Location back Intensity 5 Scale Used Numeric (0 - 10) Management Techniques Modification of Treatment,Re- positioning M4 OT- IP ADL's Start: 02/12/24 15:15 Freq: Status: Discharge Protocol: Document 02/12/24 15:15 CGR (Rec: 02/12/24 15:30 CGR [id number]) OT [id number] Comments OT Self-Feeding Comments not meal time OT ADL-Grooming Comments OT Grooming Comments pt declined OT ADL-Oral Care Comments Oral Care Comments pt declined OT ADL-Dressing Comments OT Dressing Comments Pt was educated on LB dressing with use of DME. Pt was feeling nauseated and layed in bed during demonstration and declined to attempt but was attentive during instruction. Pt reminded that he would need to be seated for LB dressing. OT ADL-Toileting General Evaluation Toileting Ability Standby Assistance Comments OT Toileting Comments Pt seated on toilet for urination when OT entered. OT ADL-Bathing Comments OT Bathing Comments not performed M5 OT- IP IADL's Start: 02/12/24 15:15 Freq: Status: Discharge Protocol: Document 02/12/24 15:15 CGR (Rec: 02/12/24 15:30 CGR [id number]) OT-Instrumental Activities of Daily Living Deficits IADL Deficits Identified No Deficits Home Safety Awareness Awareness of Need for Assistance at Home Good Awareness Ability to Problem Solve Emergency Able to Problem Solve Situations Medication Management Medication Management No Deficits Identified Money Management Money Management No Deficits Identified Meal Preparation Meal Preparation Caregiver Provides Assist Hr Internship Hr Internship Caregiver Provides Assist Driving Driving Comments 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 M6 OT- IP Functional Cognition Start: 02/12/24 15:15 Freq: Status: Discharge Protocol: Document 02/12/24 15:15 CGR (Rec: 02/12/24 15:30 CGR [id number]) Cognitive Factors Limiting Selfcare Function Cognitive Ability Level of Alertness Alert Patient Orientation Name,Age,Birthday,Month,Date, Year,Day of Week,Place, Situation Attention Span Ability Capable of Focused Attention, Capable of Sustained Attention Ability to Follow Commands Able to Follow One Step Commands with Increased Time, Able to Follow One Step Commands with Repetition OT- Vision and Hearing OT- Hearing Assessment OT- Hearing Assessment Hearing Impaired,Use of Hearing Aids OT- Vision Assessment Vision History Cataracts Visual Acuity WFL,Glasses For Reading Visual Attentiveness WFL Occular Pursuits WFL Visual Convergence WFL Vision Assessment Comments Pt has a hx of cateract sx. M7 OT- IP Mobility and Balance Start: 02/12/24 15:15 Freq: Status: Discharge Protocol: Document 02/13/24 13:12 SAMANTHA (Rec: 02/13/24 13:18 SAMANTHA [id number]) OT- Bed Mobility Assessment Rolling Type of Rolling Roll to Right Level of Assistance Independent OT-Transfer Assessment Sit to and From Stand Sit to and from Stand Standby Assistance Transfers Transfer Ability Standby Assistance Technique Transfer Destination Wheelchair Transfer Technique Stand Step Pivot Devices Transfer Assistive Devices Gait Belt,Front Wheeled Walker Comments Mobility Comments Pt stands at EOB with good balance for ~ 5 minutes while nsg performs dressing change. OT- Gait Assessment Gait Gait Assistance Required: Standby Assistance Distance (Feet) 40 Assistive Devices Assistive Device Gait Belt,Front Wheeled Walker Comments Gait Ability Comments Pt amb from side of bed to w/c in hallway. Pt uses small steps especially during turns in order to maintain lumbar precautions. OT- Balance Assessment Sitting Balance and Reactions Static Sitting Balance Ability Good Standing Balance and Reactions Static Standing Balance Ability Good M8 OT- IP Objective Assessments Start: 02/12/24 15:15 Freq: Status: Discharge Protocol: Document 02/12/24 15:15 CGR (Rec: 02/12/24 15:30 CGR [id number]) OT Gross Range of Motion Upper Extremity Range of Motion Assessment Within Functional Limits OT Strength Upper Extremity Strength Assessment Within Functional Limits Comments Strength Comments grossly 5/5 OT- Coordination Assessment Upper Extremity Finger to Nose Test Within Functional Limits Finger Tapping Test Within Functional Limits OT-Muscle Tone Assessment Muscle Tone WNL Yes OT Sensation Assessment Edema Edema Absent M9 OT- IP Assessment and Plan Start: 02/12/24 15:15 Freq: Status: Discharge Protocol: Document 02/13/24 13:12 SAMANTHA (Rec: 02/13/24 13:18 LINDAOKALINA [id number]) OT Summary Assessment and Plan Potential Rehabilitation Potential Good Summary OT Impairments Pain,Balance,Functional Mobility,Grooming,Dressing, Toileting,Bathing,Toilet Transfers,Shower Transfers, Activity Tolerance Progress Towards Goals Progressing Toward Goals Assessment Summary Pt and spouse present on entrance of OT. Pt and spouse declined being shown LB AE for dressing again. states that she will just assist with these tasks because they thought it was too confusing. OT offered several times to review LB AE, but it is repeatedly declined. Pt verbalizes understanding of lumbar precautions. Pt left sitting in w/c with nsg present and preparations being made for d/c. Pt appears to be safe to d/c. Goals Grooming Goal Independent Dressing Goal Independent Toileting Goal Independent Bathing Goal Independent Toilet Transfer Goal Independent Shower Transfer Goal Independent Days to Meet Goals 2 Frequency of Treatment Frequency Of Treatment Once a Day Treatment Plan OT Treatment Plan ADL Training,Functional Mobility,Patient/Family Education,Discharge Planning Other Treatment Recommendations and Next LB dressing training. Treatment Focus
== END 2024-02-13 13:16 | disposition home or self-care (01) | DRG 455 ==
PROVIDERS: Admitting Provider Orthopaedic Surgery Orthopaedic Surgery of the Spine; PCP Internal Medicine; Referring Provider Orthopaedic Surgery Orthopaedic Surgery of the Spine; Visit Provider Orthopaedic Surgery Orthopaedic Surgery of the Spine
PROC: 0SG00AJ Fusion of Lumbar Vertebral Joint with Interbody Fusion Device, Posterior Approach, Anterior Column, Open Approach (ICD-10-PCS; principal; 2024-02-11 09:15)
DX: M48.061 Spinal stenosis, lumbar region without neurogenic claudication (principal); M43.16 Spondylolisthesis, lumbar region; M54.16 Radiculopathy, lumbar region; R33.9 Retention of urine, unspecified; I10 Essential (primary) hypertension; K21.9 Gastro-esophageal reflux disease without esophagitis
CPT/HCPCS: 72100; 76000; 97116; 97162; 97165; 97530; 97535; C1713; C9290; J0171; J0330; J0690; J1100; J1200; J2270; J2405; J2704; J3010